=== PATIENT | female | born 2000 | race Two or more races ===

== ENCOUNTER 2021-05-06 13:03 | Emergency (ER) | payer OTHER ==
[~2021-05-06] VITALS: Ht 170.2 cm; Wt 48.1 kg
[2021-05-06] MEDS ORDERED: ZITHROMAX TRI-500 MG PO (17:34)
[2021-05-06] MEDS ORDERED: MEDROLPACK PO (17:34)
== END 2021-05-06 17:50 | disposition home or self-care (01) ==
LOC: ER 13:03
DX: A49.3 Mycoplasma infection, unspecified site (principal); E86.0 Dehydration; Z20.822 Contact with and (suspected) exposure to COVID-19

== ENCOUNTER 2021-10-13 11:24 | Outpatient (CLI) | payer OTHER ==
[~2021-10-13 11:24] MED LIST: MEDROLPACK PO; ZITHROMAX TRI-500 MG PO
== END 2021-10-13 11:28 | disposition home or self-care (01) ==
LOC: NUCLEAR 11:24
PROVIDERS: ATTEND Internal Medicine Cardiovascular Disease
DX: R55 Syncope and collapse (principal); I49.9 Cardiac arrhythmia, unspecified; I11.9 Hypertensive heart disease without heart failure